=== PATIENT | female | born 1995 | race Caucasian/White ===

== ENCOUNTER 2021-04-25 12:12 | Emergency (ER) | payer OTHER, SELFPAY ==
[2021-04-25 12:17] VITALS: BP 117/67; PULSE 109; RESP 16; TEMP 36.6; O2SAT 100; BMI 30.2
--- NOTE | 2021-04-25 12:30 | ED_ITS ---
HPI - General Adult General Chief complaint: General Medical Stated complaint: sore throat, headache, ?fever Time Seen by Provider: 04/25/21 12:23 Source: patient Mode of arrival: ambulatory Limitations: no limitations History of Present Illness HPI narrative: 26 YO female no known medical history presents to the ED with two days of fever, chills and sore throat. She states last night was the worst night, she wet her sheets from sweat. Her fever is subjective, she has been taking tylenol and motrin without relief. She reports her sore throat is so bad she has not been able to eat or drink due to pain. She states it bennett a lot when she swallows. She reports a coworker is positive for covid and another close contact is sick with something else. She is fully vaccinated. She denies CP, SOB, nausea, vomiting, abdominal pain, diarrhea, weakness, GREEN, earaches. Related Data Allergies Allergy/AdvReac Type Severity Reaction Status Date / Time No Known Allergies Allergy Unverified 04/04/20 16:26 [No Known Allergies*] Review of Systems Review of Systems: Yes all other systems are reviewed and are negative Constitutional: Constitutional: Reports no additional constitutional complaints, Denies body ache(s), Reports chills, Reports fever(s), Denies headache(s) and Denies weakness Eyes: Eyes: Reports no additional eye complaints and Denies change in vision ENT: Reports system reviewed and no additional complaints, except as documented, Denies dizziness, Denies headache(s), Denies nasal congestion, Denies nasal discharge, Denies neck pain and Reports sore throat Cardiovascular: Cardiovascular: Reports no additional cardiovascular complaints, Denies chest pain, Denies leg edema and Denies dyspnea Respiratory: Respiratory: Reports no additional respiratory complaints, Denies cough and Denies dyspnea Gastrointestinal: Gastrointestinal: Reports no additional gastrointestinal complaints, Denies abdominal pain, Denies diarrhea, Denies nausea and Denies vomiting Genitourinary: Genitourinary: Reports no additional female genitourinary complaints and Denies urinary incontinence Musculoskeletal: Musculoskeletal: Reports no additional musculoskeletal complaints, Denies back pain, Denies arthralgias, Denies joint swelling, Denies neck pain, Denies numbness and Denies tingling Integumentary/Breasts: Skin/Breast: Reports system reviewed and no additional complaints, except as docu and Denies rash Neurologic: Reports system reviewed and no additional complaints, except as documented, Denies Abnormal speech present, Denies dizziness, Denies headache(s), Denies numbness, Denies tingling and Denies weakness PMFSH Past Medical History Attestation statement: The following information was validated with the patient. Source: old records reviewed and nursing notes reviewed Social History Social History Advance Directives: No Advance Directives Information Provided: Yes Patient : No Physical Exam Vital Signs: Vital Signs: Last Vital Signs Temp 100.5 F H 04/25/21 14:17 Pulse 109 H 04/25/21 12:17 Resp 18 04/25/21 14:35 BP 117/67 04/25/21 12:17 Pulse Ox 100 04/25/21 12:17 Body Mass Index 30.2 Const: General: cooperative, healthy appearing, comfortable and no acute distress Orientation/consciousness: patient oriented x3 Limitations: no limitations HENMT: Other: Bilateral tonsils appear erythematous free of exudates. Patient speaking well and controlling secretions well. No lymphadenopathy noted. Head: Yes normal to inspection Ears: hearing grossly normal bilaterally General nose exam: Normal external nose present Face and sinus: Yes normal facial exam Mouth: Normal oral and palatal mucosa present, oropharynx abnormals (b/l errythema overlying tonsils. ) and moist mucous membranes Throat: Yes posterior oropharynx normal Eyes: General: appearance normal, both eyes and all related structures Pupils: Equal, round and reactive pupils present Neck: Neck: Yes normal visual inspection Chest: Chest palpation & inspection: normal inspection of the chest Resp: Effort & Inspection: normal respiratory effort Auscultation: clear to auscultation bilaterally Cardio: Rate: abnormal rate (Rapid rate, normal rythem likley sinus tachycardia. ) Rhythm: regular rhythm Peripheral pulses: Peripheral pulses 2+ throughout GI: Inspection: Yes normal to inspection Palpation (GI): Soft to palpation and nontender Auscultation: normal bowel sounds Back/Spine/Pelvis: Thoracic/Lumbar Spine: thoracic and lumbar spine normal to inspection Skin: General skin exam: no rashes or lesions noted Neuro: General: patient oriented x3, no focal motor deficits and normal sensation to monofilament Cranial nerves: Yes Equal, round and reactive pupils present Cognition (Neuro): normal cognition Speech: No Abnormal speech present Gait exam (Neuro): Normal gait present Motor exam (neuro): 5/5 motor strength present throughout Extrem: General: Yes normal to inspection Course Course Course Narrative: 1237- This is a 26-year-old female with no known medical history presents to the emergency department with 2 days of fevers, chills, sore throat. She states it has been progressively worsening. Her fevers subjective, she states last night she wet her sheets, from her sweating at night. She states she has been taking Tylenol, and Motrin without relief. She describes her sore throat as a burning pain, and due to this pain she has not been able to eat or drink since yesterday. She reports recent sick contacts, 1 from [employer], and 1 with upper respiratory symptoms. She is vaccinated Physical exam shows a rapid rate with a normal rhythm. Will bilateral tonsils are erythematous, free of exudates. Patient is controlling secretions well. Reevaluation(s) Reevaluation #1: Patient still states she if not felling well. Flu/ COVID/ RSV negative. Monospot will be ordered at this time. Time: 13:46 Reevaluation #2: [place] spot is negative. Unlikely that this a pneumonia, lungs are clear, patient denies SOB and cough. No need for CXR at this time. Most likely a viral upper respiratory infection. Patient is safe for D/C home with PCP follow up. She has been instructed to return with worrisome symptoms such as chest pain, fevers, shortness of breath or if she develops new symptoms. Time: 14:36 Medical Decision Making MDM Narrative Medical decision making narrative: Based off of patient history, and physical exam findings, flu/COVID/RSV has been ordered, and a strep test has also been ordered. Medical Records Medical records reviewed: Yes I reviewed the patient's medical records. Lab Data Lab results reviewed: Yes I reviewed the patient's lab results. Labs: Lab Results 04/25/21 04/25/21 04/25/21 Range/Units 12:44 12:44 13:50 Coronavirus (PCR) NEGATIVE (Negative) Monoscreen Negative (Negative) Influenza Type A (PCR) NEGATIVE (Negative) Influenza Type B (PCR) NEGATIVE (Negative) RSV RNA Qual (PCR) NEGATIVE (Negative) S. pyogenes GrpA DONNA Negative (Negative) Discharge Plan Discharge Clinical Impression: Upper respiratory infection Qualifiers: URI type: unspecified viral URI Qualified Code(s): J06.9 - Acute upper respiratory infection, unspecified Patient Disposition: Home, Self-Care Instructions: Pharyngitis (ED) Additional Instructions: Drink plenty of fluids You tested negative for Flu/COVID/RSV. Follow up with your PCP next week Take tylenol alternating with motrin as needed for fevers. Return to the ED with new or worsening symptoms Referrals: Thelma Barrera MD [Primary Care Provider] - 2 days Stand Alone Forms: Work/School Release Discharge Date/Time: 04/25/21 14:38
[2021-04-25 13:03] LABS: IDNOW Serial# 9DD0AD1C; Strep A Nucleic Acid Negative (Negative)
[2021-04-25 13:33] LABS: Influenza A PCR NEGATIVE (Negative); Influenza B PCR NEGATIVE (Negative); Resp Syncy Virus RNA Qual PCR NEGATIVE (Negative); SARS COV2 PCR INHOUSE NEGATIVE (Negative)
[2021-04-25] MEDS: Acetaminophen 325 MG TABLET 975 MG PO (14:15)
[2021-04-25 14:17] VITALS: RESP 18; TEMP 38.1
[2021-04-25 14:18] LABS: Monotest Negative (Negative)
[2021-04-25 14:35] VITALS: RESP 18
== END 2021-04-25 14:38 | disposition home or self-care (01) ==
PROVIDERS: Nurse Practitioner Family; Emergency Provider Emergency Medicine Emergency Medical Services; PCP Internal Medicine
DX: J06.9 Acute upper respiratory infection, unspecified (principal); Z20.822 Contact with and (suspected) exposure to COVID-19
CPT/HCPCS: 0241U; 36415; 86308; 87651; 99283

== ENCOUNTER → 2023-01-01 09:54 | Outpatient (BNVA) | payer OTHER, SELFPAY | PROVIDERS: PCP Internal Medicine; Visit Provider Physician Assistant Surgical ==